=== PATIENT | female | born 1975 | race Caucasian/White ===

== ENCOUNTER → 2016-04-16 | Outpatient (CLI) | payer BC ==
[~2016-04-16] MED LIST: AMOX875T PO; DRV100 PO; OXYC7.5T65 PO; TAMS0.4C38 PO
--- NOTE | 2016-04-16 12:39 | DIAGNOSTIC IMAGING REPORT ---
CHEST 2 VIEWS ROUTINE CLINICAL HISTORY: N20.0 Nephrolithiasis preoperative evaluation COMPARISON STUDY: No previous studies for comparison. FINDINGS: The bones soft tissues and hemidiaphragms are normal. The cardiomediastinal silhouette is normal. The lungs are clear. The pulmonary vasculature is normal. IMPRESSION: Negative chest. Electronically signed by: Talha Tucker M.D. 04/16/2016 12:36 PM
[2016-04-16 13:15] LABS: BASO % 0.2 %; BASO ABS # 0.02 K/uL (0-0.2); COMPLETE YES; EOS % 0.7 %; HEMATOCRIT 41.9 % (37-47); IG% 0.2 %; LYMPH % 27.9 %; LYMPH ABS # 2.27 K/uL (1.2-3.4); MEAN CELL VOLUME 92.7 fL (80-100); MEAN CORPUSCULAR HEMOGLOBIN 32.5 pg (25-34); MEAN CORPUSCULAR HGB CONC 35.1 g/dl (32-36); MONO % 9.5 %; NEUT % 61.5 %; PLATELET COUNT 280 K/uL (130-400); RED BLOOD COUNT 4.52 M/uL (4.2-5.4); WHITE BLOOD COUNT 8.13 K/uL (4.8-10.8)
[2016-04-16 14:01] LABS: BLOOD UREA NITROGEN 16 mg/dl (7-18); BUN/CREATININE RATIO 20.2 (10-20); CARBON DIOXIDE 27 mmol/L (21-32); CHLORIDE 105 mmol/L (98-107); POTASSIUM 4.3 mmol/L (3.5-5.1); SODIUM 141 mmol/L (136-145)
== END | disposition home or self-care (01) ==
LOC: C.CPL 11:45
PROVIDERS: ATTEND Urology
DX: N20.0 Calculus of kidney (principal)

== ENCOUNTER → 2016-04-26 | Day surgery (SDC) | payer BC ==
[2016-04-22 08:37] VITALS: Ht 167.6 cm; Wt 81.8 kg
--- NOTE | 2016-04-25 17:05 | DIAGNOSTIC IMAGING REPORT ---
KUB CLINICAL HISTORY: N20.0 Nephrolithiasis COMPARISON STUDY: CT scan dated 03/14/2016 FINDINGS: The renal shadows are partially obscured by overlying bowel gas and fecal material. There is no pathologic bowel dilatation. An IUD is visualized within the pelvis. An opacity projecting of the right renal shadow likely represents enteric contents. There is a 5 mm irregular lower pole left renal calculus versus cluster calculi. IMPRESSION: Left-sided nephrolithiasis. Electronically signed by: Jared Galindo M.D. 04/25/2016 5:04 PM Dictated Date/Time: 04/25/2016 5:02 PM
[~2016-04-26] VITALS: Ht 167.6 cm; Wt 81.8 kg
[~2016-04-26] MED LIST changes: +ATROPINE SULFATE 0.1 MG/ML 5ML SYR IV PRN; +CIPROFLOXACIN 400MG / D5W IV SCH; +DEXAMETHASONE SOD INJ 4 MG/ML VIAL ONE; -DRV100 PO; +EpHEDrine SULFATE INJ 50 MG/ML AMP IV PRN; +FENTANYL CITRATE INJ 50 MCG/1 ML 2 ML VIAL IV PRN; +FENTANYL CITRATE INJ 50 MCG/1 ML 2 ML VIAL ONE; +LACTATED RINGER'S 1000ML 1,000 ML IV SCH; +LIDOCAINE HCL 2% 2 ML VIAL (20MG/ML) ONE; +MIDAZOLAM HCL 1 MG/ML 2ML VIAL ONE; +ONDANSETRON INJ 2 MG/ML 2 ML VIAL IV PRN; +ONDANSETRON INJ 2 MG/ML 2 ML VIAL ONE; +OXYCODONE/ACETAMINOPHEN 5-325 TAB PO PRN; +PROPOFOL IV EMULSION 10 MG/ML 20 ML VIAL IV ONE
--- NOTE | 2016-04-26 07:50 | History & Physical Bridge Note ---
H&P Re-Evaluation Bridge Note: I have examined the patient, reviewed the History & Physical and in the interval since the performance of the History & Physical I have noted the following changes of clinical significance: No changes noted
--- NOTE | 2016-04-26 08:20 | Discharge Instructions ---
Discharge Instructions Admission Reason for Admission: Stones Discharge Discharge Diagnosis / Problem: L renal stone s/p ESWL Discharge Goals Goal(s): Decrease discomfort, Improve disease control, Therapeutic intervention Activity Recommendations Activity Limitations: per Instructions/Follow-up section Lifting Limitations: gradually increase as tolerated Exercise/Sports Limitations: rest today May Resume Sexual Activity: when tolerated Shower/Bathe: no limitations Driving or Machine Use: resume 1 day after discharge . Instructions / Follow-Up Instructions / Follow-Up Strain urine as instructed Follow up in office as scheduled with KUB Xray prior to visit Discharge Diet Recommended Diet: Regular Diet (good fluid intake) Procedures Procedures Performed: Left ESWL Pending Studies Studies pending at discharge: no Medical Emergencies . Who to Call and When: Medical Emergencies: If at any time you feel your situation is an emergency, please call 911 immediately. . Non-Emergent Contact Non-Emergency issues call your: Urologist Call Non-Emergent contact if: you have a fever, temperature is above 101, your pain is not controlled, your pain is worsening, your pain is unusual for you, your pain is concerning you . . "Provider Documentation" section prepared by Jose Dinh. VTE Core Measure Inpt VTE Proph given/why not?: SCD's [place] Drug Monitoring Program Search Results: patient reviewed within database, no issues identified
--- NOTE | 2016-04-26 09:29 | [facility] Post Operative Brief Note ---
Immediate Operative Summary Operative Date Apr 26, 2016. Pre-Operative Diagnosis Left renal stone Post-Operative Diagnosis same Procedure(s) Performed Left Extracorporeal Shock Wave Lithotripsy--Renal Surgeon Dr Martín Dinh Dress Operator Surgeon(s) 0 Estimated Blood Loss 0 Findings Good stone fragmentation Specimens 0 Drains NA Anesthesia G[facility]MA Complication(s) None Disposition Recovery Room / PACU
--- NOTE | 2016-04-26 10:12 | OPERATIVE REPORT ---
DATE OF OPERATION: 04/26/2016 PREOPERATIVE DIAGNOSIS: Left lower pole renal stone. POSTOPERATIVE DIAGNOSIS: Same. PROCEDURE: Left-sided renal extracorporeal shockwave lithotripsy. SURGEON: Dr. Jose Dinh. DRYING RACK CHANGER: None. ANESTHESIA: General anesthesia with laryngeal mask. COMPLICATIONS: None. FINDINGS: Good stone fragmentation on fluoroscopy. DETAILS OF PROCEDURE: The patient was brought to the litho suite. He was correctly identified and the stone was visualized on his most recent x-rays. After the correct time out was performed the patient was positioned over the therapy head. An adequate level of anesthesia was administered. The extracorporeal shockwave lithotripsy treatment was then commenced. Please see the [facility] sheet for complete treatment summary. After completion of the procedure the patient was taken to the recovery room in stable condition. I attest to the content of the Intraoperative Record and any orders documented therein. Any exceptio ns are noted below.
[2016-04-26 10:20] VITALS: TEMP 36.4
[2016-04-26 10:45] VITALS: BP 123/78; PULSE 66; O2SAT 100
--- NOTE | 2016-04-26 10:58 | Anesthesia Progress Nt - [facility] ---
Anesthesia Post Op Note Date & Time Apr 26, 2016 at 10:58 Vital Signs Pain Intensity: 0 Vital Signs Past 12 Hours Date Time Temp Pulse Resp B/P Pulse Ox O2 Delivery O2 Flow Rate FiO2 04/26/16 10:45 66 16 123/78 100 Room Air 04/26/16 10:20 36.4 69 16 123/81 99 Room Air 04/26/16 10:11 36.8 59 16 132/79 97 Room Air 04/26/16 10:09 63 17 04/26/16 10:09 65 17 132/79 98 04/26/16 10:08 66 17 98 04/26/16 10:08 68 17 04/26/16 10:04 115/62 04/26/16 10:03 58 17 04/26/16 10:03 57 17 98 04/26/16 09:58 55 17 106/72 100 04/26/16 09:58 56 17 04/26/16 09:53 53 21 04/26/16 09:53 54 21 121/92 100 04/26/16 09:49 112/78 04/26/16 09:48 63 19 04/26/16 09:48 66 19 100 04/26/16 09:44 36.5 65 16 129/80 100 Mask 8 04/26/16 09:43 66 16 133/78 100 04/26/16 09:43 67 16 04/26/16 07:10 37.0 80 20 111/64 98 Room Air Notes Mental Status: alert / awake / arousable, participated in evaluation Pt Amnestic to Procedure: Yes Nausea / Vomiting: adequately controlled Pain: adequately controlled Airway Patency, RR, SpO2: stable & adequate BP & HR: stable & adequate Hydration State: stable & adequate Anesthetic Complications: no major complications apparent
== END | disposition home or self-care (01) ==
LOC: X.SURG 06:58
PROVIDERS: ATTEND Urology
DX: N20.0 Calculus of kidney (principal); R31.0 Gross hematuria; G56.20 Lesion of ulnar nerve, unspecified upper limb; Z83.3 Family history of diabetes mellitus

== ENCOUNTER → 2016-05-08 | Outpatient (CLI) | payer BC ==
[~2016-05-08] MED LIST changes: -ATROPINE SULFATE 0.1 MG/ML 5ML SYR IV PRN; -CIPROFLOXACIN 400MG / D5W IV SCH; -DEXAMETHASONE SOD INJ 4 MG/ML VIAL ONE; -EpHEDrine SULFATE INJ 50 MG/ML AMP IV PRN; -FENTANYL CITRATE INJ 50 MCG/1 ML 2 ML VIAL IV PRN; -FENTANYL CITRATE INJ 50 MCG/1 ML 2 ML VIAL ONE; -LACTATED RINGER'S 1000ML 1,000 ML IV SCH; -LIDOCAINE HCL 2% 2 ML VIAL (20MG/ML) ONE; -MIDAZOLAM HCL 1 MG/ML 2ML VIAL ONE; -ONDANSETRON INJ 2 MG/ML 2 ML VIAL IV PRN; -ONDANSETRON INJ 2 MG/ML 2 ML VIAL ONE; -OXYCODONE/ACETAMINOPHEN 5-325 TAB PO PRN; -PROPOFOL IV EMULSION 10 MG/ML 20 ML VIAL IV ONE; -TAMS0.4C38 PO
== END | disposition home or self-care (01) ==
LOC: C.LABSPEC 10:54
PROVIDERS: ATTEND Urology
DX: N20.0 Calculus of kidney (principal)

== ENCOUNTER → 2016-05-08 | Outpatient (CLI) | payer BC ==
--- NOTE | 2016-05-08 16:22 | DIAGNOSTIC IMAGING REPORT ---
KUB CLINICAL HISTORY: Nephrolithiasis. FINDINGS: 2 AP abdominal radiographs are compared to study dated 04/25/2016 and correlated with abdominal CT dated 03/14/2016. There is a nonobstructed abdominal bowel gas pattern noting moderate colonic fecal retention. There is no radiographic evidence of nephrolithiasis on today's examination. No calcifications are seen along the course of the ureters. An intrauterine device is noted in the pelvis. The bony structures appear intact. The lung bases are clear as visualized. IMPRESSION: There is no radiographic evidence of nephrolithiasis on today's examination. Electronically signed by: Levon Yin M.D. 05/08/2016 4:20 PM Dictated Date/Time: 05/08/2016 4:19 PM
== END | disposition home or self-care (01) ==
LOC: C.RAD 16:04
PROVIDERS: ATTEND Urology
DX: N20.0 Calculus of kidney (principal)

== ENCOUNTER 2016-08-03 16:35 | Emergency (ER) | payer BC ==
[~2016-08-03] VITALS: Ht 167.6 cm; Wt 82.1 kg
[~2016-08-03 16:35] MED LIST changes: -AMOX875T PO
[2016-08-03 16:38] VITALS: PULSE 84; TEMP 36.7; O2SAT 98; Ht 167.6 cm; Wt 82.1 kg
[2016-08-03] MEDS ORDERED: AMOXICILLIN/CLAVULANATE TAB 875 MG TAB PO STA (17:10)
[2016-08-03] MEDS ORDERED: IBUPROFEN 200 MG TAB PO STA (17:10)
--- NOTE | 2016-08-03 17:58 | DIAGNOSTIC IMAGING REPORT ---
LEFT HAND MIN 3 VIEWS ROUTINE CLINICAL HISTORY: Pain. Cat bite. COMPARISON: None. DISCUSSION: No acute fractures are visualized. 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 No radiopaque foreign bodies are visualized. No destructive lesions are evident. There is gas present within the soft tissues adjacent to the first metacarpal phalangeal joint.. IMPRESSION: 1. No acute fractures 2. No foreign bodies identified 3. Gas within the soft tissues adjacent to the first metacarpal phalangeal joint Electronically signed by: Jared Galindo M.D. 08/03/2016 5:56 PM Dictated Date/Time: 08/03/2016 5:55 PM
--- NOTE | 2016-08-03 17:59 | DIAGNOSTIC IMAGING REPORT ---
RIGHT HAND MIN 3 VIEWS ROUTINE CLINICAL HISTORY: Pain. Tach. COMPARISON: None. DISCUSSION: No acute fractures are visualized. There are osteoarthritic changes most pronounced the level distal to phalangeal joints. There is a corticated ossicle adjacent to the hamate. There is also a cortical ossicle adjacent to the lunate. No radiopaque foreign bodies are visualized. IMPRESSION: 1. No acute fractures 2. No radiopaque foreign bodies identified. Electronically signed by: Jared Galindo M.D. 08/03/2016 5:57 PM Dictated Date/Time: 08/03/2016 5:56 PM
[2016-08-03] MEDS ORDERED: AMOX875T PO (18:42)
[2016-08-03] MEDS ORDERED: AMOXICIL/CLAVU 875MG HOME PACK PO STA (18:43)
--- NOTE | 2016-08-03 18:43 | EMERGENCY ROOM VISIT NOTE ---
History First contact with patient: 16:56 Chief Complaint: LACERATION/CUT (NON-SUTURE) Stated Complaint: CUTS FROM CAT Nursing Triage Summary: "My cat went down a groundhog hole and didn't want to come out." Per pt. scratches noted bilateral hands and face. States her cat is up to date with vaccinations History of Present Illness The patient is a 41 year old female who presents to the Emergency Room via private vehicle with complaints of "cuts from cat". The patient states that her cat was underneath her porch and a ground hog cold, and she attempted to retrieve the cat when it reached out to her and scratched her face and then bit both of her hands and scratched her right arm. This occurred 1 hour prior to arrival. The cats shots are up-to-date to include the rabies vaccinations. The patient's tetanus is up-to-date. She has previously underwent the rabies series. She rates the overall pain as a 4/10. Review of Systems A complete 6-point Review of Systems was discussed with the patient, with pertinent positives and negatives listed in the History of Present Illness. All remaining Review of Systems questions can be considered negative unless otherwise specified. Past Medical/Surgical History Renal calculi, toe injury Family History Diabetes, cancer, kidney disease or stones. Social History Smoking Status: Never Smoker Social History: Patient is currently employed, and works on a farm. Current/Historical Medications Scheduled Amoxicillin & Pot Clavulanate (Augmentin 875-125 mg), 1 TAB PO BID Allergies Coded Allergies: Coconut (Verified Adverse Reaction, Unknown, VOMITING, 04/26/16) Uncoded Allergies: ANTIBIOTICS (GENERAL) (Adverse Reaction, Intermediate, N/V, 08/03/16) Physical Exam Vital Signs Date Time Temp Pulse Resp B/P Pulse Ox O2 Delivery O2 Flow Rate FiO2 08/03/16 18:55 110/64 08/03/16 16:38 36.7 84 18 134/79 98 Room Air Physical Exam VITAL SIGNS - Vital signs and nursing notes were reviewed. Patient is currently afebrile, normotensive, non-tachycardic and is saturating well on room air 98%. GENERAL -41-year-old female appearing her stated age who is in no acute distress. Communicates well with provider and answers questions appropriately. SKIN - Without rashes. There are multiple bites to the hands. There are also 2 abrasions to the anterior right forearm and to the right side of the face. There are a total of 6 abrasions to the face. None of these will require wound closure. HEAD - NC/AT. EYES - PERRL with EOMI bilaterally. Sclera anicteric. Palpebral conjunctiva pink and moist with no injection noted. EARS - No deformities of external structures noted on gross examination bilaterally. NOSE - Midline and without cyanosis. No epistaxis or purulent drainage noted. Septum midline without deviation or septal hematoma noted. MOUTH/OROPHARYNX - Without perioral cyanosis. Buccal mucosa pink and moist and without leukoplakia. Tongue midline with equal elevation of palate bilaterally. No tonsillar hypertrophy, erythema, or exudates noted. There dentition noted. EXTREMITIES - No clubbing or peripheral cyanosis. No pretibial edema present. patient is neurovascularly intact in the extremities with full range of motion. +5/5 strength noted in UE/LE bilaterally. Medical Decision & Procedures ER Provider Diagnostic Interpretation: DISCUSSION: No acute fractures are visualized. 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 No radiopaque foreign bodies are visualized. No destructive lesions are evident. There is gas present within the soft tissues adjacent to the first metacarpal phalangeal joint.. IMPRESSION: 1. No acute fractures 2. No foreign bodies identified 3. Gas within the soft tissues adjacent to the first metacarpal phalangeal joint Electronically signed by: Jared Galindo M.D. 08/03/2016 5:56 PM Dictated Date/Time: 08/03/2016 5:55 PM RIGHT HAND MIN 3 VIEWS ROUTINE CLINICAL HISTORY: Pain. Tach. COMPARISON: None. DISCUSSION: No acute fractures are visualized. There are osteoarthritic changes most pronounced the level distal to phalangeal joints. There is a corticated ossicle adjacent to the hamate. There is also a cortical ossicle adjacent to the lunate. No radiopaque foreign bodies are visualized. IMPRESSION: 1. No acute fractures 2. No radiopaque foreign bodies identified. Electronically signed by: Jared Galindo M.D. 08/03/2016 5:57 PM Dictated Date/Time: 08/03/2016 5:56 PM Medications Administered Medications (Trade) Dose Ordered Sig/Malka Route Start Time Stop Time Status Last Admin Dose Admin Amoxicillin/ Clavulanate Potassium (Augmentin Tab) 875 mg ONE STAT PO 08/03/16 17:10 08/03/16 17:12 DC 08/03/16 17:18 875 MG Ibuprofen (Advil Tab) 400 mg NOW STAT PO 08/03/16 17:10 08/03/16 17:12 DC 08/03/16 17:17 400 MG Medical Decision Patient was seen and evaluated as above. She presents with multiple abrasions and puncture wounds from the cat. The vaccinations of her the counter up-to- date. Radiographs were obtained of the hands bilaterally to evaluate for any retained teeth or bone involvement. These were negative for acute process. She was educated upon the findings. The wounds were cleansed with normal saline , Betadine followed by bacitracin dressing with nonadherent bandage and Miguel Angel wrap. She tolerated this well. She was provided an Augmentin tablet here, sent home with a home pack with the remainder sent to the pharmacy. I will elect to provide her with a 10 day course of this medication given the extent of the bites. She is very high risk for infection and this was expressed to her. She was to return with any worsening of her symptoms. There are no signs of infection at this time. She was educated upon worrisome symptoms which to return, had questions prior to discharge and was discharged home in good condition. While here for her pain she was given 400 mg of ibuprofen. She did not request any stronger medication. In the evaluation treatment this patient following differential diagnoses were entertained: Cat bite, abrasion, laceration, retained foreign body, fracture, among others. Impression Primary Impression: Cat bite Additional Impressions: Cat scratch of face Cat scratch of hand Cat scratch of multiple sites Departure Information Dispostion Home / Self-Care Condition GOOD Prescriptions Amoxicillin & Pot Clavulanate (Augmentin 875-125 mg) 1 Tab Tab 1 TAB PO BID for 9 Days, #18 TAB Prov: Jayson Armstrong PA-C 08/03/16 Referrals Nakul Joseph M.D. (PCP) Patient Instructions My [facility] Additional Instructions You were seen in the emergency Department for cat scratch/bite You've been prescribed Augmentin. This is an antibiotic. All antibiotics can cause You have been prescribed Augmentin to be taken as prescribed. This is an antibiotic. All antibiotics have the potential to cause diarrhea. Stop this medication and contact a medical provider if you were to develop any significant adverse side effects including: wheezing, shortness of breath, passing out, vomiting, or a diffuse rash. Always take antibiotics as directed and COMPLETE the ENTIRE course regardless of the improvement of your symptoms. It is recommended you follow-up in 48 hours for recheck of your wounds, or sooner if worsening such as redness, drainage or any swelling. Please repeat the dressings twice daily for the next 2 days. Please do not submerge these and water. Please take care to clean the wounds. Please return to the emergency department with any new/concerning symptoms. Problem Qualifiers
[2016-08-03 18:55] VITALS: BP 110/64
== END 2016-08-03 18:58 | disposition home or self-care (01) ==
LOC: C.EDB 16:37 → C.EDD 18:58
DX: S00.81XA Abrasion of other part of head, initial encounter (principal); S60.519A Abrasion of unspecified hand, initial encounter; T14.8 Other injury of unspecified body region; W55.03XA Scratched by cat, initial encounter; Z87.442 Personal history of urinary calculi; Z91.018 Allergy to other foods; Z83.3 Family history of diabetes mellitus; Z80.9 Family history of malignant neoplasm, unspecified; Z84.1 Family history of disorders of kidney and ureter

== ENCOUNTER → 2016-10-09 | Outpatient (CLI) | payer BC ==
--- NOTE | 2016-10-09 10:20 | DIAGNOSTIC IMAGING REPORT ---
KUB CLINICAL HISTORY: Nephrolithiasis. FINDINGS: An AP supine abdominal radiograph is compared to study dated 05/08/2016 and correlated with abdominal CT dated 03/14/2016. There is a nonobstructed abdominal bowel gas pattern noting moderate colonic fecal retention. There is no radiographic evidence of nephrolithiasis on today's examination. No calcifications are seen along the course of the ureters. An intrauterine device is noted in the pelvis. The bony structures appear intact. The lung bases are clear as visualized. IMPRESSION: There is no radiographic evidence of nephrolithiasis on today's examination. Electronically signed by: Levon Yin M.D. 10/09/2016 10:18 AM Dictated Date/Time: 10/09/2016 10:17 AM
== END | disposition home or self-care (01) ==
LOC: C.RAD 09:34
PROVIDERS: ATTEND Urology
DX: R31.0 Gross hematuria (principal)